=== PATIENT | female | born 1960 | race African-American/Black ===

== ENCOUNTER → 2024-08-18 | Outpatient (CLI) | payer MEDICARE, OTHER, MEDICAID ==
[~2024-08-18] MED LIST: DECADRON6 MG PO; LEVAQUIN 750MG750 M1 PO
== END ==
LOC: MC.RAD 13:47
DX: Z12.31 Encounter for screening mammogram for malignant neoplasm of breast (principal)

== ENCOUNTER → 2024-08-28 | Outpatient (CLI) | payer MEDICARE, MEDICAID | LOC: COL.RAD 09:40 | DX: K44.9 Diaphragmatic hernia without obstruction or gangrene (principal) ==